=== PATIENT | male | born 1990 | race Two or more races ===

== ENCOUNTER 2025-02-08 05:25 | Day surgery (SDC) | payer OTHER ==
[2025-02-08] MEDS ORDERED: fentaNYL CITRATE 50 MCG/ML AMPUL IV PUSH ONE (09:45)
[2025-02-08] MEDS ORDERED: MIDAZOLAM HCL 2 MG/2 ML VIAL IV ONE (09:45)
[2025-02-08] MEDS ORDERED: DIPHENHYDRAMINE HCL 50 MG/ML VIAL 1ML IV ONE (09:45)
== END 2025-02-08 11:05 | disposition home or self-care (01) ==
LOC: AMB-ENDOS 05:25
PROVIDERS: ATTEND Colon & Rectal Surgery
DX: K62.5 Hemorrhage of anus and rectum (principal)